=== PATIENT | female | born 1985 | race Caucasian/White ===

== ENCOUNTER 2020-10-25 00:55 | Emergency (ER) | payer OTHER ==
[~2020-10-25] VITALS: Ht 175.3 cm; Wt 100.7 kg
[2020-10-25] MEDS ORDERED: SODIUM CHLORIDE 0.9% 1,000ML IVBOLUS ONE (01:30)
[2020-10-25] MEDS ORDERED: ONDANSETRON 2MG/ML, 2ML IVPush ONE (01:30)
[2020-10-25] MEDS ORDERED: MAALOX/HYOSCYAMINE/LIDOCAINE 45 ML BTL PO ONE (01:30)
[2020-10-25] MEDS ORDERED: SODIUM CHLORIDE FLUSH 10ML SYR IVF ONE (01:30)
[2020-10-25] MEDS ORDERED: FAMOTIDINE 20 MG/2 ML IVPush ONE (01:30)
[2020-10-25] MEDS ORDERED: DICYCLOMINE 10 MG CAPSULE PO ONE (01:30)
[2020-10-25] MEDS ORDERED: ONDANSETRON 2MG/ML, 2ML ONE (01:31)
[2020-10-25] MEDS ORDERED: FAMOTIDINE 20 MG/2 ML ONE (01:31)
[2020-10-25] MEDS ORDERED: MAALOX/HYOSCYAMINE/LIDOCAINE 45 ML BTL ONE (01:32)
--- NOTE | 2020-10-25 01:48 | NUR ---
"[place] WERE TRAVELL[place] FROM [place]. SUNDAY NIGHT I HAD DINNER AND THEN I STARTED HAVING PROJECTILE VOMITING AND DIARRHEA ALL NIGHT. TOOK PEPTO AND ANTACID. NO SYMPTOMS FOR TWO DAYS AND SUNDAY NIGHT AND AGAIN IT STARTED AGAIN. N/V/D"
--- NOTE | 2020-10-25 01:49 | NUR ---
MEDICATED PER MAR
[2020-10-25 02:02] LABS: BASOPHILS % (AUTO) 1 % (0-1); EOSINOPHILS % (AUTO) 1 % (1-7); LYMPHOCYTES % (AUTO) 20 % (22-44); MEAN CORPUSCULAR HEMOGLOBIN 28.1 pg (27.0-34.8); MEAN PLATELET VOLUME 7.7 fL (7.4-10.4); MONOCYTES % (AUTO) 9 % (2-9); NEUTROPHILS % (AUTO) 69 % (42-75); PLATELET COUNT 381 x10^3/uL (130-400); RED BLOOD COUNT 3.75 x10^6/uL (3.82-5.3); RED CELL DISTRIBUTION WIDTH 15.3 % (9.6-15.2)
[2020-10-25 02:03] LABS: MD NO
[2020-10-25 02:11] LABS: ALANINE AMINOTRANSFERASE 20 U/L (12-78); ALBUMIN 3.4 g/dL (3.4-5.0); ANION GAP 6 mmol/L (5-15); CALCIUM 8.7 mg/dL (8.5-10.1); CHLORIDE 112 mmol/L (98-107); CREATININE 0.91 mg/dL (0.55-1.02)
[2020-10-25 02:16] LABS: ALKALINE PHOSPHATASE 63 U/L (45-117); BILIRUBIN,TOTAL 0.3 mg/dL (0.2-1.0); TOTAL PROTEIN 6.8 g/dL (6.4-8.2)
[2020-10-25 02:20] VITALS: BP 141/78
--- NOTE | 2020-10-25 02:21 | NUR ---
PT HAS NOT HAD VOMITING OR DIARRHEA DURING HER STAY
--- NOTE | 2020-10-25 03:11 | NUR ---
PT TOLERATED PO FLUDI CHALLENGE
--- NOTE | 2020-10-25 04:07 | NUR ---
Patient/Caregiver given discharge instructions and they have confirmed that they understand the instructions. Patient ambulatory with steady gait.
== END 2020-10-26 04:24 | disposition home or self-care (01) ==
LOC: ED 04:15
DX: R11.2 Nausea with vomiting, unspecified (principal); R10.84 Generalized abdominal pain; R19.7 Diarrhea, unspecified; Z20.822 Contact with and (suspected) exposure to COVID-19
CPT/HCPCS: 36415; 74021; 80053; 83690; 84703; 85025; 87635; 96374; 96375; 99284; J2405; J7030